=== PATIENT | female | born 1985 | race Caucasian/White ===

== ENCOUNTER 2019-05-14 05:04 | Inpatient (IN) ==
[2019-05-14] MEDS ORDERED: Metoclopramide 10 MG/2 ML VIAL IVP PRN ×2 (05:55→11:44)
[2019-05-14] MEDS ORDERED: Naloxone 0.4 MG/ML INJ IVP PRN (05:55)
[2019-05-14] MEDS ORDERED: Famotidine 20 MG/2 ML VIAL IVP PRN (05:55)
[2019-05-14] MEDS ORDERED: Ringers Solution, Lactated 1,000 ML IVC SCH (06:00)
[2019-05-14 06:35] LABS: Amphetamine Screen,Urine Negative ng/mL (Cutoff=1000); Barbiturate Screen,Urine Negative ng/mL (Cutoff=200)
[2019-05-14 06:36] LABS: Basophils % 0.3 %; Eosinophils # 0.1 K/mcL (0.0-0.6); Hematocrit 38.9 % (35.3-44.9); Hemoglobin 13.4 g/dL (11.5-15.4); Immature Granulocytes % 0.8 % (0-4); Lymphocytes # 1.5 K/mcL (0.6-4.6); Lymphocytes % 17.1 %; Mean Corpuscular HGB Conc 34.4 g/dL (31.6-35.5); Mean Corpuscular Volume 95.8 fL (83.0-100.0); Mean Platelet Volume 9.9 fL (9.4-12.4); Monocytes # 0.7 K/mcL (0.0-1.3); Monocytes % 8.2 %; Neutrophils # 6.3 K/mcL (1.6-8.9); Platelet Count 228 K/mcL (140-400); Red Blood Count 4.06 M/mcL (3.82-4.97); Red Cell Distribution Width 13.5 % (11.5-14.5); Segmented Neutrophils % 72.6 %; White Blood Count 8.7 K/mcL (4.3-11.1)
[2019-05-14 06:36] LABS: Benzodiazepines Screen,Urine Negative ng/mL (Cutoff=300); Cannabinoid Screen,Urine Negative ng/mL (Cutoff = 50); Cocaine Screen,Urine Negative ng/mL (Cutoff= 300); Opiate Screen,Urine Negative ng/mL (Cutoff=300); Phencyclidine Screen,Urine Negative ng/mL (Cutoff=25)
[2019-05-14] MEDS ORDERED: Oxytocin 20 units/ LR 1000 mL 40 UNIT/2,000 ML BAG IVC ONE (07:29)
[2019-05-14] MEDS ORDERED: CeFAZolin 2,000 MG/50 ML BAG IVPB ONE (07:30)
[2019-05-14] MEDS ORDERED: *HR* OxyCODONE/APAP 5/325 TABLET PO PRN (07:37)
[2019-05-14] MEDS ORDERED: Ibuprofen 400 MG TABLET PO PRN (07:37)
[2019-05-14] MEDS ORDERED: Methylergonovine 0.2 MG/ML AMPUL IM ONE ×2 (09:29→09:31)
[2019-05-14] MEDS ORDERED: Acetaminophen IV 1,000 MG/100 ML INFUS..BTL IVPB SCH ×2 (09:37→12:00)
[2019-05-14] MEDS ORDERED: Sennosides 8.6 MG TABLET PO PRN (11:44)
[2019-05-14] MEDS ORDERED: Ondansetron 4 MG/2 ML VIAL IVP PRN (11:44)
[2019-05-14] MEDS ORDERED: Rho Immune Globulin 1,500 UNIT SYRINGE IM ONE (11:44)
[2019-05-14] MEDS ORDERED: Ketorolac 30 MG/ML VIAL IVP SCH (12:00)
[2019-05-14] MEDS: Ibuprofen 600 MG TABLET PO PRN ×2 (12:03→21:38)
[2019-05-14] MEDS ORDERED: miSOPROStoL 100 MCG TABLET RC STA (12:18)
[2019-05-14] MEDS: Oxytocin 20 units/ LR 1000 mL 20 UNIT/1,000 ML BAG IVC SCH ×2 (12:46→21:41)
[2019-05-14] MEDS: *HR* OxyCODONE/APAP 5/325 TABLET PO PRN (15:15)
[2019-05-15] MEDS: *HR* OxyCODONE/APAP 5/325 TABLET PO PRN ×4 (01:12→21:42)
[2019-05-15] MEDS: Ibuprofen 600 MG TABLET PO PRN ×4 (04:25→21:43)
[2019-05-15] MEDS: Simethicone 80 MG TAB.CHEW PO PRN ×4 (04:25→21:41)
[2019-05-15 06:48] LABS: Basophils % 0.3 %; Eosinophils # 0.1 K/mcL (0.0-0.6); Eosinophils % 0.9 %; Hematocrit 27.4 % (35.3-44.9); Immature Granulocytes % 0.7 % (0-4); Lymphocytes # 1.2 K/mcL (0.6-4.6); Lymphocytes % 10.9 %; Mean Corpuscular Hemoglobin 32.7 pg (28.0-33.3); Mean Corpuscular Volume 93.2 fL (83.0-100.0); Mean Platelet Volume 9.4 fL (9.4-12.4); Monocytes # 0.6 K/mcL (0.0-1.3); Neutrophils # 8.7 K/mcL (1.6-8.9); Platelet Count 189 K/mcL (140-400); Red Blood Count 2.94 M/mcL (3.82-4.97); Red Cell Distribution Width 13.7 % (11.5-14.5); Segmented Neutrophils % 81.2 %; White Blood Count 10.7 K/mcL (4.3-11.1)
[2019-05-15 06:49] LABS: Hemoglobin 9.6 g/dL (11.5-15.4)
[2019-05-15] MEDS: Prenatal Vit/FA 1 EACH TABLET PO SCH (07:43)
[2019-05-15] MEDS ORDERED: Lanolin 7 G OINT...G. TP PRN (07:48)
[2019-05-15] MEDS ORDERED: Ibuprofen 600 MG TABLET PO SCH (12:00)
[2019-05-16] MEDS: Ibuprofen 600 MG TABLET PO PRN ×2 (03:47→10:18)
[2019-05-16] MEDS: *HR* OxyCODONE/APAP 5/325 TABLET PO PRN ×2 (03:47→11:24)
[2019-05-16 05:55] LABS: Basophils % 0.4 %; Eosinophils # 0.2 K/mcL (0.0-0.6); Eosinophils % 2.8 %; Hematocrit 26.7 % (35.3-44.9); Immature Granulocytes % 0.6 % (0-4); Lymphocytes # 1.5 K/mcL (0.6-4.6); Lymphocytes % 20.8 %; Mean Corpuscular HGB Conc 33.7 g/dL (31.6-35.5); Mean Corpuscular Hemoglobin 32.7 pg (28.0-33.3); Mean Corpuscular Volume 97.1 fL (83.0-100.0); Mean Platelet Volume 9.4 fL (9.4-12.4); Monocytes # 0.5 K/mcL (0.0-1.3); Monocytes % 7.4 %; Neutrophils # 4.9 K/mcL (1.6-8.9); Platelet Count 191 K/mcL (140-400); Red Blood Count 2.75 M/mcL (3.82-4.97); White Blood Count 7.2 K/mcL (4.3-11.1)
[2019-05-16 08:26] VITALS: BP 104/68
[2019-05-16] MEDS: Simethicone 80 MG TAB.CHEW PO PRN (10:18)
[2019-05-16] MEDS: Prenatal Vit/FA 1 EACH TABLET PO SCH (10:18)
== END 2019-05-16 12:55 | disposition home or self-care (01) | DRG 785 ==
LOC: 1NENULAB 05:04 → 1NENUOBS 11:20
PROVIDERS: ADMIT Obstetrics & Gynecology; ATTEND Obstetrics & Gynecology